=== PATIENT | male | born 1990 | race African-American/Black ===

== ENCOUNTER 2018-06-29 10:25 | Inpatient (IN) ==
[2018-06-29 11:18] LABS: Appearance Urine Cloudy (Clear); Bacteria Urine Automated Negative (Negative); Bilirubin Urine Negative (Negative); Color Urine Yellow; Glucose Urine UA Negative (Negative); Ketones Urine Negative (Negative); Leukocyte Esterase Urine Negative (Negative); Nitrite Urine Negative (Negative); Protein Urine Negative (Negative); Urobilinogen Urine Negative (Negative); pH Urine 7.5 (4.5-7.5)
[2018-06-29] MEDS ORDERED: SODIUM CHLORIDE 0.9% 250 ML IV PRN ×2 (11:28→14:35)
[2018-06-29 11:37] LABS: Alanine Aminotransferase 10 U/L (12-78); Albumin Level 3.8 gm/dl (3.4-5.0); Aspartate Aminotransferase 6 U/L (15-37); BUN Creatinine Ratio 14.5 (10-20); Blood Urea Nitrogen 11 mg/dl (7-18); Calcium 8.6 mg/dl (8.5-10.1); Carbon Dioxide 27 mmol/L (21-32); Chloride 110 mmol/L (98-107); Creatinine Clr Calc Pharmacy 164.3 ml/min; Est GFR (African American) 145.2; Est GFR (Non-African American) 125.2; Glucose 88 mg/dl (70-99); Potassium 3.7 mmol/L (3.5-5.1); Sodium 141 mmol/L (136-145)
[2018-06-29 11:40] LABS: Alkaline Phosphatase 66 U/L (45-117); Bilirubin,Total 0.4 mg/dl (0.2-1); Globulin 3.7 gm/dl (2.5-4.0); Total Protein 7.5 gm/dl (6.4-8.2)
[2018-06-29 11:41] LABS: Hematocrit (blood only) 16.5 % (42-52); Hemoglobin 5.5 g/dL (14.0-18.0); Lymphocytes # (auto) 1.31 K/uL (1.2-3.4); Lymphocytes % (auto) 73.2 %; Mean Corpuscular Hgb Conc 33.3 g/dL (32-36); Mean Corpuscular Volume 103.1 fL (80-100); Mean Platelet Volume 7.9 fL (7.4-10.4); Monocytes # (auto) 0.05 K/uL (0.11-0.59); Monocytes % (auto) 2.8 %; Neutrophils # (auto) 0.43 K/uL (1.4-6.5); Platelet Count 20 K/uL (130-400); RDW Coefficient of Variation 16.9 % (11.5-14.5); RDW Standard Deviation 62.5 fL (36.4-46.3); White Blood Count 1.79 K/uL (4.8-10.8)
[2018-06-29 11:42] LABS: Ovalocytes 2+; Tear Drop Cells 1+
[2018-06-29] MEDS ORDERED: IOVERSOL 100ml IV PRN (11:48)
[2018-06-29 11:58] LABS: Troponin I < 0.015 ng/ml (0-0.045)
--- NOTE | 2018-06-29 12:05 | XRay Report ---
XR chest 1V portable CLINICAL HISTORY: 28 years-old Male presenting with chest pain. TECHNIQUE: Portable upright AP view of the chest was obtained. COMPARISON: 10/27/2014. FINDINGS: Cardiomediastinal silhouette normal. No focal opacity. No large effusion or pneumothorax. Osseous str uctures normal. Upper abdomen normal. IMPRESSION: 1. No acute cardiopulmonary disease. Electronically signed by: Donal Coyle M.D. 06/29/2018 12:03 PM
--- NOTE | 2018-06-29 12:13 | CT Scan Report ---
CT SCAN OF THE ABDOMEN AND PELVIS WITH IV CONTRAST CLINICAL HISTORY: Pancytopenia. Constipation. COMPARISON STUDY: No priors. TECHNIQUE: Following the IV administration of 93 cc of Optiray 320, CT scan of the abdomen and pelvi s is performed from the lung bases to the proximal femora. Images are reviewed in the axial, sagittal , and coronal planes. IV contrast was administered without complication. A dose lowering technique wa s utilized adhering to the principles of ALARA. CT DOSE: 327.17 mGy.cm FINDINGS: Lung bases: The heart is normal in size and without pericardial effusion. The lung bases are clear. Liver: The contrast-enhanced liver is normal in size, contour, and attenuation. There is no intrahepa tic biliary ductal dilatation. The hepatic veins and portal veins are patent. There are scattered keshawn cified hepatic granulomas. Gallbladder: Unremarkable. Spleen: Normal in size and attenuation. There are calcified splenic granulomas. Pancreas: Unremarkable. Adrenal glands: Unremarkable. Kidneys: The contrast enhanced kidneys are normal in size and without hydronephrosis. The kidneys enh ance symmetrically. Abdominal vasculature: The abdominal aorta is normal in course and caliber. Bowel: There is moderate to severe constipation. No bowel obstruction is identified. The appendix is not identified and reported surgically absent. Peritoneum: There is no intraperitoneal free air or abdominal ascites. There is a small fat-containin g umbilical hernia. Lymphadenopathy: None. Pelvic viscera: The bladder, prostate, and seminal vesicles are normal as imaged. Skeletal structures: No lytic or blastic lesions are seen. There is a right-sided pars defect at L5. IMPRESSION: Constipation. Electronically signed by: Helder Rivera M.D. 06/29/2018 12:12 PM
[2018-06-29 12:40] LABS: Partial Thromboplastin Ratio 0.9; Partial Thromboplastin Time 25.5 Seconds (21.0-31.0); Prothrombin Time 10.7 Seconds (9.0-12.0)
[2018-06-29] MEDS ORDERED: ACETAMINOPHEN 325 MG TAB PO PRN (14:27)
[2018-06-29] MEDS ORDERED: POLYETHYLENE (MIRALAX) 17 GM PACK PO PRN (14:27)
[2018-06-29] MEDS ORDERED: ONDANSETRON INJ 2 MG/ML 2 ML VIAL IV PRN (14:27)
--- NOTE | 2018-06-29 15:26 | History & Physical Report ---
Date of Service June 29, 2018 Assessment & Plan (1) Pancytopenia: WBC 1.7, no blasts or other atypical WBC seen on smear Hb 5.5, feels fatigued and has KEY Platelets 20, no bruising or bleeding will transfuse 2 units of PRBC for the anemia no need for platelets at this time as he is not bleeding will need bone marrow biopsy tomorrow, Dr. Mejia consulted check CMV, EBV and HIV (has been tested for HIV in the past, negative) no toxic inhalations or ingestions per patient discussed with Dr. Mott over the phone today, he agrees to accept patient to [facility] once they have beds possible bed tomorrow afternoon but in reality it could be until Wednesday he recommends getting the biopsy tomorrow to get the work up started will check labs in the AM (2) Asthma: no wheezing on exam, breathing stable continue Advair, Singulair, Alvesco (3) Depression: mood stable, continue Duloxetine Please note that 80 minutes spent on this admission this included visiting with the patient twice, speaking with Dr. Cornelius on the phone twice and speaking with [facility] and Dr. Mott for 25 minutes History of Present Illness Chief Complaint: I feel tired Primary Care Provider: [facility] 28 yo male with history of asthma and depression, currently incarcerated at [facility], presents to the ED due to pancytopenia. Had blood work at [facility] that shows all three counts were low so he was sent to the ED for work up. The patient reports that he has been really fatigued and has been experiencing shortness of breath for one week. In hindsight, said that the fatigue has been for 2 weeks. He says he developed a mild sore throat three days ago. No fever or chills, no sweats, no weight loss. No bruising or bleeding. No cough, no dyspnea at rest. His appetite has been poor for the past two weeks, says he just doesn't feel like eating. Denies abdominal pain or nausea. His last BM was a week ago. This is atypical for him. He has no personal history of any type of blood dyscrasia. To his knowledge no one in his family has had leukemia. His mother has diabetes and some type of cancer that went to her bones, he does not know the primary cancer. No medical history for his father or siblings. CBC showed WBC 1.7, Hb 5.5, platelets 20. Cr stable. Peripheral smear showed normochromic RBC, no atypical WBC such as blasts, no platelet clumping so the number was legitimate. Discussed the case with Dr. Mejia over the phone. He recommended checking EBV, CMV, HIV. Ultimately he feels the patient will need bone marrow biopsy. Asked specifically about any toxic exposures, the patient denied anything in the past two weeks or ever. Discussed with Dr. Mott at [facility], he agrees that the patient should come to [facility] but they do not have beds, recommends getting BM biopsy here to start the work up. Allergies Allergy/AdvReac Type Severity Reaction Status Date / Time tomato Allergy Unknown Unverified 06/29/18 12:31 Home Medications Home Medications Medication Instructions Recorded Confirmed Type ciclesonide [Alvesco] 1 puff INHALATION BID 06/29/18 06/29/18 History diphenhydramine HCl 50 mg PO HS 06/29/18 06/29/18 History duloxetine 30 mg PO HS 06/29/18 06/29/18 History levalbuterol tartrate [Xopenex HFA] 1 puff INHALATION Q6H 06/29/18 06/29/18 History montelukast 10 mg PO DAILY 06/29/18 06/29/18 History prazosin 2 mg PO HS 06/29/18 06/29/18 History salmeterol [Serevent Diskus] 1 inh INHALATION Q12H 06/29/18 06/29/18 History Past Med/Surg History Medical History Asthma Depression No significant past surgical history Social History Current Living Situation: Other Current Living Situation Comment: inmate Feels Safe at Home: Yes Smoking Status: Current every day smoker Review of Systems All systems reviewed & are unremarkable except as noted in HPI & below Constitutional: + fatigue and + weakness; no fever, no chills, no sweats and no weight loss Ear, Nose, Mouth, Throat: no bleeding gums Cardiovascular: + dyspnea on exertion; no chest pain, no dyspnea and no edema Gastrointestinal: + constipation; no abdominal pain, no nausea, no vomiting and no diarrhea/loose stools Integumentary: no new lesions and no unusual bruising Physical Exam 2 Vital Signs (Past 24 Hours): Last Vital Signs Temp 36.9 C 06/29/18 14:37 Pulse 67 06/29/18 14:37 Resp 20 06/29/18 13:52 BP 103/66 06/29/18 14:37 Pulse Ox 100 06/29/18 14:37 Constitutional: WD/WN, vitals as above Eyes: PERRL, conjunctivae normal, anicteric sclerae ENMT: external ear and nose normal, oropharynx normal Neck: trachea midline, no thyromegaly Respiratory: normal respiratory effort, lungs clear to auscultation Cardiovascular: RRR, no murmur, no edema Gastrointestinal (Abdomen): normal bowel sounds, soft, nontender, no hepatosplenomegaly Musculoskeletal: no cyanosis or clubbing, extremities motor strength 5/5 Skin: no rashes, warm and dry Neurologic: patellar DTR's 2+ bilat, sensation intact and PERRL, EOMI, accommodation nl, no face palsy, no dysarthria Psychiatric: A+Ox3, euthymic affect Lymphatic: no cervical or axillary lymphadenopathy Results & Data Laboratory Results Laboratory Results - last 24 hr 06/29/18 06/29/18 06/29/18 11:00 11:00 11:00 WBC 1.79 L RBC 1.60 L Hgb 5.5 L* Hct 16.5 L* MCV 103.1 H MCH 34.4 H MCHC 33.3 RDW Std Deviation 62.5 H RDW Coeff of Mendez 16.9 H Plt Count 20 L* MPV 7.9 Immature Gran % (Auto) 0.0 Neut % (Auto) 24.0 Lymph % (Auto) 73.2 [place] % (Auto) 2.8 Eos % (Auto) 0.0 Baso % (Auto) 0.0 Immature Gran # (Auto) 0.00 Neut # (Auto) 0.43 L* Lymph # (Auto) 1.31 [facility] # (Auto) 0.05 L Eos # (Auto) 0.00 Baso # (Auto) 0.00 Platelet Estimate SIGNIFIC DECREASED Tear Drop Cells 1+ Ovalocytes 2+ Peripher Smr Path Cons PT 10.7 INR 1.0 APTT 25.5 PTT Ratio 0.9 Sodium 141 Potassium 3.7 Chloride 110 H Carbon Dioxide 27 Anion Gap 4.0 BUN 11 Creatinine 0.77 Est Cr Clr Drug Dosing 164.3 Est GFR ( Amer) 145.2 Est GFR (Non-Af Amer) 125.2 BUN/Creatinine Ratio 14.5 Glucose 88 Calcium 8.6 Total Bilirubin 0.4 AST 6 L ALT 10 L Alkaline Phosphatase 66 Troponin I < 0.015 Total Protein 7.5 Albumin 3.8 Globulin 3.7 Albumin/Globulin Ratio 1.0 Lipase 87 Urine Color Urine Appearance Urine pH Ur Specific Lillian Urine Protein Urine Glucose (UA) Urine Ketones Urine Blood Urine Nitrite Urine Bilirubin Urine Urobilinogen Ur Leukocyte Esterase Urine WBC (Auto) Urine RBC (Auto) U Hyaline Cast (Auto) U Epithel Cells (Auto) Urine Bacteria (Auto) Blood Type Blood Type Recheck Antibody Screen Crossmatch 06/29/18 06/29/18 06/29/18 11:05 11:57 11:58 WBC RBC Hgb Hct MCV MCH MCHC RDW Std Deviation RDW Coeff of Mendez Plt Count MPV Immature Gran % (Auto) Neut % (Auto) Lymph % (Auto) [facility] % (Auto) Eos % (Auto) Baso % (Auto) Immature Gran # (Auto) Neut # (Auto) Lymph # (Auto) [facility] # (Auto) Eos # (Auto) Baso # (Auto) Platelet Estimate Tear Drop Cells Ovalocytes Peripher Smr Path Cons PT INR APTT PTT Ratio Sodium Potassium Chloride Carbon Dioxide Anion Gap BUN Creatinine Est Cr Clr Drug Dosing Est GFR ( Amer) Est GFR (Non-Af Amer) BUN/Creatinine Ratio Glucose Calcium Total Bilirubin AST ALT Alkaline Phosphatase Troponin I Total Protein Albumin Globulin Albumin/Globulin Ratio Lipase Urine Color Yellow Urine Appearance Cloudy H Urine pH 7.5 Ur Specific Lillian 1.020 Urine Protein Negative Urine Glucose (UA) Negative Urine Ketones Negative Urine Blood Negative Urine Nitrite Negative Urine Bilirubin Negative Urine Urobilinogen Negative Ur Leukocyte Esterase Negative Urine WBC (Auto) 1-5 Urine RBC (Auto) 0-4 U Hyaline Cast (Auto) 1-5 U Epithel Cells (Auto) 10-20 H Urine Bacteria (Auto) Negative Blood Type O Positive Blood Type Recheck O Positive Antibody Screen NEGATIVE Crossmatch See Detail Diagnostic Findings CT SCAN OF THE ABDOMEN AND PELVIS WITH IV CONTRAST CLINICAL HISTORY: Pancytopenia. Constipation. COMPARISON STUDY: No priors. TECHNIQUE: Following the IV administration of 93 cc of Optiray 320, CT scan of the abdomen and pelvis is performed from the lung bases to the proximal femora. Images are reviewed in the axial, sagittal, and coronal planes. IV contrast was administered without complication. A dose lowering technique was utilized adhering to the principles of ALARA. CT DOSE: 327.17 mGy.cm FINDINGS: Lung bases: The heart is normal in size and without pericardial effusion. The lung bases are clear. Liver: The contrast-enhanced liver is normal in size, contour, and attenuation. There is no intrahepatic biliary ductal dilatation. The hepatic veins and portal veins are patent. There are scattered calcified hepatic granulomas. Gallbladder: Unremarkable. Spleen: Normal in size and attenuation. There are calcified splenic granulomas. Pancreas: Unremarkable. Adrenal glands: Unremarkable. Kidneys: The contrast enhanced kidneys are normal in size and without hydronephrosis. The kidneys enhance symmetrically. Abdominal vasculature: The abdominal aorta is normal in course and caliber. Bowel: There is moderate to severe constipation. No bowel obstruction is identified. The appendix is not identified and reported surgically absent. Peritoneum: There is no intraperitoneal free air or abdominal ascites. There is a small fat-containing umbilical hernia. Lymphadenopathy: None. Pelvic viscera: The bladder, prostate, and seminal vesicles are normal as imaged. Skeletal structures: No lytic or blastic lesions are seen. There is a right- sided pars defect at L5. IMPRESSION: Constipation. Code Status & VTE Plan Code Status full code VTE Prophylaxis Plan VTE Prophylaxis will be ordered: No Reason for no VTE drug order: Contraindicated (thrombocytopenia) Reason for no VTE mechanical prophylaxis: Treatment not indicated ( thrombocytopenia)
[2018-06-29] MEDS: DULOXETINE HCL 30 MG CAP PO SCH ×2 (20:34→20:42)
[2018-06-29] MEDS: PRAZOSIN HCL 1 MG CAP PO SCH ×2 (20:34→20:42)
[2018-06-29] MEDS: SALMETEROL XINAFOATE 50MCG 28 BLISTER INH INH SCH (20:35)
[2018-06-29] MEDS: BUDESONIDE 90 MCG INH INH SCH (20:35)
[2018-06-29] MEDS ORDERED: SERTRALINE HCL 100 MG TABLET PO SCH (21:00)
[2018-06-29] MEDS ORDERED: risperiDONE 3 MG TABLET PO SCH (21:00)
[2018-06-29] MEDS ORDERED: PRAZOSIN HCL 1 MG CAP PO SCH (21:00)
[2018-06-30 06:27] LABS: Platelet Count 20 K/uL (130-400)
[2018-06-30 06:34] LABS: BUN Creatinine Ratio 15.3 (10-20); Calcium 8.5 mg/dl (8.5-10.1); Creatinine Clr Calc Pharmacy 175.7 ml/min; Est GFR (African American) 149.2; Est GFR (Non-African American) 128.7; Potassium 4.2 mmol/L (3.5-5.1)
[2018-06-30 06:41] LABS: Hematocrit (blood only) 20.3 % (42-52); Hemoglobin 6.9 g/dL (14.0-18.0); Mean Corpuscular Volume 96.2 fL (80-100); Mean Platelet Volume 8.9 fL (7.4-10.4); RDW Standard Deviation 69.3 fL (36.4-46.3); Red Blood Count 2.11 M/uL (4.7-6.1); White Blood Count 2.18 K/uL (4.8-10.8)
[2018-06-30 06:42] LABS: Anisocytosis Present; Eosinophils # (auto) 0.01 K/uL (0-0.5); Eosinophils % (auto) 0.5 %; Lymphocytes # (auto) 1.78 K/uL (1.2-3.4); Lymphocytes % (auto) 81.7 %; Monocytes # (auto) 0.05 K/uL (0.11-0.59); Monocytes % (auto) 2.3 %; Neutrophils # (auto) 0.34 K/uL (1.4-6.5); Neutrophils % (auto) 15.5 %; Ovalocytes 1+; Tear Drop Cells 1+
[2018-06-30] MEDS: BUDESONIDE 90 MCG INH INH SCH ×2 (07:16→20:20)
[2018-06-30] MEDS: SALMETEROL XINAFOATE 50MCG 28 BLISTER INH INH SCH ×2 (07:16→20:19)
[2018-06-30] MEDS ORDERED: MONTELUKAST SODIUM 10 MG TABLET PO SCH (09:00)
[2018-06-30] MEDS ORDERED: LIDOCAINE HCL 1% 20 ML VIAL ONE (11:42)
--- NOTE | 2018-06-30 16:47 | Discharge Summary ---
Date of Service June 30, 2018 Admission HPI Per Admitting Provider 28 yo male with history of asthma and depression, currently incarcerated at [facility], presents to the ED due to pancytopenia. Had blood work at [facility] that shows all three counts were low so he was sent to the ED for work up. The patient reports that he has been really fatigued and has been experiencing shortness of breath for one week. In hindsight, said that the fatigue has been for 2 weeks. He says he developed a mild sore throat three days ago. No fever or chills, no sweats, no weight loss. No bruising or bleeding. No cough, no dyspnea at rest. His appetite has been poor for the past two weeks, says he just doesn't feel like eating. Denies abdominal pain or nausea. His last BM was a week ago. This is atypical for him. He has no personal history of any type of blood dyscrasia. To his knowledge no one in his family has had leukemia. His mother has diabetes and some type of cancer that went to her bones, he does not know the primary cancer. No medical history for his father or siblings. CBC showed WBC 1.7, Hb 5.5, platelets 20. Cr stable. Peripheral smear showed normochromic RBC, no atypical WBC such as blasts, no platelet clumping so the number was legitimate. Discussed the case with Dr. Mejia over the phone. He recommended checking EBV, CMV, HIV. Ultimately he feels the patient will need bone marrow biopsy. Asked specifically about any toxic exposures, the patient denied anything in the past two weeks or ever. Discussed with Dr. Mott at [facility], he agrees that the patient should come to [facility] but they do not have beds, recommends getting BM biopsy here to start the work up. Principal Diagnosis pancytopenia Discharge Exam Constitutional WD/WN, vitals as above Eyes PERRL, conjunctivae normal, anicteric sclerae ENMT external ear and nose normal, oropharynx normal Respiratory normal respiratory effort, lungs clear to auscultation Cardiovascular RRR, no murmur, no edema Gastrointestinal (Abdomen) normal bowel sounds, soft, nontender, no hepatosplenomegaly Skin no rashes, warm and dry no bruising/bleeding Psychiatric A+Ox3, euthymic affect Discharge Data Allergies Allergy/AdvReac Type Severity Reaction Status Date / Time tomato Allergy Unknown Unverified 06/29/18 12:31 Consultations 06/29/18 12:23 ED Decision to Admit Stat 06/29/18 14:27 Consult Hematology Routine Ordered Studies 06/29/18 11:28 CT abd pelvis IV con only Stat Hospital Course (1) Pancytopenia: 28 y/o M with PMH asthma and depression presented to [facility] 06/19 from [facility] where he is incarcerated for concerns over pancytopenia. Pt had blood work at [facility] that showed all three counts were low: WBC 1.7, Hb 5.5, platelets 20. Pt reported that he had been very fatigued with KEY and has been experiencing SOB for one week. Additional complaints of sore throat three days ago and poor for the past two weeks. Last BM was a week ago, which is abnormal. Pt denied fever, chills, sweats, weight loss, abd pain, N/V, bruising or bleeding, or any sort of toxic exposures/inhalations/ingestions. Pt notes no personal or family history of any type of blood dyscrasia or leukemia. Pt was admitted and the following was the medical management during his stay here. 1) Pancytopenia -Pt's peripheral smear showed normochromic RBC, no atypical WBC such as blasts, no platelet clumping. Most recent blood work showed WBC 2.18, Hgb 6.9 (s/p transfusion 2 units pRBCs), Plt 20. Bone marrow biopsy was performed 06/30 and while final full report is pending, heme/onc noted wet read showed hypocellular marrow indicative of aplastic anemia. CMV and EBV were still pending, HIV negative. [facility] [place] and agreed for transfer. On d/c, pt notes ongoing fatigue. 2) Asthma -Pt had no wheezing on exam and breathing was stable. Pt continued on Advair, Singulair, Alvesco 3) Depression -Pt's mood was stable, and was continued on Duloxetine DVT prophylaxis not given considering low risk. At time of d/c, pt had no other acute concerns or complaints. Total Time Total Time Spent Total Time Spent (In Minutes): <30 min Discharge Plan Discharge Items Patient Disposition: Transfer Acute Care Hospital Reason For Visit: PANCYTOPENIA Discharge Diagnosis: pancytopenia Discharge Goals: Diagnostic testing and Improve disease control Activity: Per 'Additional Instructions' section Non-emergency contact: Primary Care Provider Call non-emergency contact if: you have any medication questions and your symptoms worsen Diet: Heart Healthy Addtl Provider Instructions: 28 y/o M with PMH asthma and depression presented to [facility] 06/19 from [facility] where he is incarcerated for concerns over pancytopenia. Pt had blood work at [facility] that showed all three counts were low: WBC 1.7, Hb 5.5, platelets 20. Pt reported that he had been very fatigued with KEY and has been experiencing SOB for one week. Additional complaints of sore throat three days ago and poor for the past two weeks. Last BM was a week ago, which is abnormal. Pt denied fever, chills, sweats, weight loss, abd pain, N/V, bruising or bleeding, or any sort of toxic exposures/inhalations/ingestions. Pt notes no personal or family history of any type of blood dyscrasia or leukemia. Pt was admitted and the following was the medical management during his stay here. Pt's peripheral smear showed normochromic RBC, no atypical WBC such as blasts, no platelet clumping. Most recent blood work showed WBC 2.18, Hgb 6.9 (s/p transfusion 2 units pRBCs), Plt 20. Bone marrow biopsy was performed 06/30 and while final full report is pending, heme/onc noted wet read showed hypocellular marrow indicative of aplastic anemia. CMV and EBV were still pending, HIV negative. [facility] and agreed for transfer. On d/c, pt notes ongoing fatigue. Prescriptions: Continue diphenhydramine HCl 50 mg Capsule 50 mg PO HS RF: 0 salmeterol [Serevent Diskus] 50 mcg/dose Blister With Device 1 inh INHALATION Q12H RF: 0 montelukast 10 mg Tablet 10 mg PO DAILY RF: 0 prazosin 2 mg Capsule 2 mg PO HS RF: 0 duloxetine 30 mg Capsule,Delayed Release(Dr/Ec) 30 mg PO HS RF: 0 levalbuterol tartrate [Xopenex HFA] 45 mcg/actuation Hfa Aerosol Inhaler 1 puff INHALATION Q6H RF: 0 ciclesonide [Alvesco] 80 mcg/actuation Hfa Aerosol Inhaler 1 puff INHALATION BID RF: 0 Stand-Alone Forms: My [facility] Discharge Orders: Discharge Order (Routine); Ordered 06/30/18 Ordered By: Tanner Knox Admission Data Admit Date/Time: 06/29/18 12:26 Attending Provider: Nnamdi Carrera Admit Provider: Nehemias Ellis Primary Care Provider: [facility] GALLE[facility] Other Providers: Nehemias Ellis ; Conrad Mejia Service: Medical Supervising Physician Co-Signing Physician Notes I personally examined the patient and verified all paulino points of history and exam, discussed case, and agree with decision making with Dr Knox. Feeling okay post bone marrow biopsy. Case discussed with hematology�oncology throughout the day. Input greatly appreciated. Bed available at [facility], and patient transferred. Vitals noted, in general he is laying in bed no distress. HEENT normocephalic atraumatic mucous membranes are moist. Breathing is unlabored no accessory muscle use good effort. Skin shows no rashes no pallor or icterus. Pancytopenia�biopsy pending, transfer to [facility] for ongoing evaluation and treatment. Stable via ground Resident Activity Tracking Resident Involvement: Resident Care Provided Care Provided: Adult Hospital Medicine
[2018-06-30] MEDS: DULOXETINE HCL 30 MG CAP PO SCH (20:20)
[2018-06-30] MEDS: PRAZOSIN HCL 1 MG CAP PO SCH (20:20)
--- NOTE | 2018-06-30 20:48 | Emergency Department Note ---
Entered by Wei Potter acting as a scribe for Tammy Duggan DO History of Present Illness General Chief complaint: Constipation Stated complaint: LOW BLOOD COUNT,NOT HAVING BOWEL MOVEMENT 1WEEK Time Seen by Provider: 06/29/18 10:59 Source: patient History of Present Illness Onset (ago): day(s) (bloodwork obtained yesterday) Location: head (global), upper extremity (global) and lower extremity (global) Pain Consistency: + other (shortness of breath and chest pain with exertion) Quality: + other (pancytopenia) Exacerbated By: + other (exertion) Associated symptoms: + other (fatigue, bleeding of gums when brushing teeth) The patient is a 41 year old male who presents to the Emergency Room after bloodwork obtained yesterday showing pancytopenia. The patient reports that he does not have a history of this. He reports that recently he has been weak and fatigued. He notes that he develops shortness of breath, �choking� chest pain, and lightheadedness with exertion. He reports a history of asthma but states that his inhalers are not improving his symptoms. He states that there is bleeding of the gums when he brushes his teeth. He denies hematuria. He states that he has not had a bowel movement for one week now, noting that he normally has one every four days. He states that his last bowel movement one week ago was �harris� without blood. No recent dark or black stools. He denies a history of blood transfusion or liver problems. He states that he regularly takes several medications. He notes that his mother was diagnosed with bone cancer in her 30s. Home Medications Home Medications Medication Instructions Recorded Confirmed Type ciclesonide [Alvesco] 1 puff INHALATION BID 06/29/18 06/29/18 History diphenhydramine HCl 50 mg PO HS 06/29/18 06/29/18 History duloxetine 30 mg PO HS 06/29/18 06/29/18 History levalbuterol tartrate [Xopenex HFA] 1 puff INHALATION Q6H 06/29/18 06/29/18 History montelukast 10 mg PO DAILY 06/29/18 06/29/18 History prazosin 2 mg PO HS 06/29/18 06/29/18 History salmeterol [Serevent Diskus] 1 inh INHALATION Q12H 06/29/18 06/29/18 History Allergies Allergy/AdvReac Type Severity Reaction Status Date / Time tomato Allergy Unknown Unverified 06/29/18 12:31 Past Med/Surg History Medical History Asthma Depression No significant past surgical history Social History Current Living Situation: Other Current Living Situation Comment: inmate Feels Safe at Home: Yes Smoking Status: Current every day smoker Preferred Language: Cuban Review of Systems See HPI for pertinent positives & negatives. and A total of 10 systems reviewed and were otherwise negative Physical Exam Vital Signs Vital Signs - 24 hr 06/29/18 21:00 06/29/18 22:00 06/29/18 22:56 Temperature 36.9 C 37.2 C 36.8 C Temperature Source Oral Oral Oral Pulse Rate 78 78 Pulse Rate [Right Finger] 67 Pulse Rhythm Regular Regular Pulse Rhythm [Right Finger] Regular Pulse Strength Normal Normal Pulse Strength [Right Finger] Normal Respiratory Rate 18 18 18 Respiratory Effort / Characteristics Non-Labored Respiratory Depth Normal Respiratory Pattern Regular Blood Pressure 113/72 119/71 Blood Pressure [Right Arm] 114/62 Blood Pressure Mean 85 87 Blood Pressure Mean [Right Arm] 79 Blood Pressure Position Sitting Sitting Blood Pressure Position [Right Arm] Lying Pulse Oximetry 100 100 94 Oxygen Delivery Method Room Air 06/30/18 06:32 06/30/18 16:17 06/30/18 19:51 Temperature 36.8 C 36.5 C 36.5 C Temperature Source Oral Oral Pulse Rate Pulse Rate [Right Finger] 59 L 68 68 Pulse Rhythm Pulse Rhythm [Right Finger] Regular Pulse Strength Pulse Strength [Right Finger] Normal Respiratory Rate 18 18 18 Respiratory Effort / Characteristics Non-Labored Respiratory Depth Normal Respiratory Pattern Regular Blood Pressure Blood Pressure [Right Arm] 104/63 113/57 L 113/57 L Blood Pressure Mean Blood Pressure Mean [Right Arm] 76 75 Blood Pressure Position Blood Pressure Position [Right Arm] Lying Lying Pulse Oximetry 96 100 100 Oxygen Delivery Method Room Air Room Air GENERAL: alert, pale appearing, well nourished, no distress, non-toxic EYE EXAM: normal conjunctiva, PERRL and EOM's grossly intact OROPHARYNX: no exudate, no erythema, lips, buccal mucosa, and tongue normal and mucous membranes are moist NECK: supple, no nuchal rigidity, no adenopathy, non-tender LUNGS: Clear to auscultation. Normal chest wall mechanics, no w/r/r HEART: no murmurs, S1 normal and S2 normal ABDOMEN: abdomen soft, non-tender, normo-active bowel sounds, no masses, no rebound or guarding. BACK: Back is symmetrical on inspection and there is no deformity, no midline tenderness, no CVA tenderness. SKIN: pale, no rashes and no bruising UPPER EXTREMITIES: upper extremities are grossly normal. FROM, nml pulses b/l. LOWER EXTREMITIES: No pitting edema. FROM, nml pulses b/l. NEURO EXAM: Normal sensorium, cranial nerves II-XII grossly intact, normal speech, no gross weakness of arms, no gross weakness of legs. Gross sensation intact. Course 1106: Past medical records reviewed. The patient was evaluated in room C7, and a complete history and physical examination were performed. 1127: Review of records shows that outpatient bloodwork on June 28 showed hemoglobin of 5.5, hematocrit of 16.5, WBC of 2.1, and inability to report platelet count. 1135: I discussed blood transfusion with the patient at bedside. A consent form was signed. 1220: I consulted Dr. Ellis � [facility] Hospitalist. He will reevaluate the patient for hospitalization. Consultations Consultation #1: I consulted Dr. Ellis � [facility] Hospitalist. He will reevaluate the patient for hospitalization. Time: 12:20 Administered Medications Budesonide (Pulmicort Flexhaler) 1 puffs INH BID KATRIN Stop: 07/29/18 20:59 Last Admin: 06/30/18 20:20 Dose: 1 puffs Admin: 06/30/18 07:16 Dose: 1 puffs Admin: 06/29/18 20:35 Dose: 1 puffs Diphenhydramine HCl (Benadryl Capsule) 50 mg PO HS KATRIN Stop: 07/29/18 20:59 Last Admin: 06/30/18 20:19 Dose: 50 mg Admin: 06/29/18 20:34 Dose: 50 mg Duloxetine HCl (Cymbalta) 30 mg PO HS KATRIN Stop: 07/29/18 20:59 Last Admin: 06/30/18 20:20 Dose: Not Given Admin: 06/29/18 20:42 Dose: Not Given Ioversol (Optiray 320 100ml) 93 ml IV ONCE PRN PRN Reason: Interaction Checking Stop: 07/03/18 11:47 Last Admin: 06/29/18 11:49 Dose: 93 ml Montelukast Sodium (Singulair) 10 mg PO DAILY KATRIN Stop: 07/30/18 08:59 Last Admin: 06/30/18 07:16 Dose: 10 mg Polyethylene Glycol (Miralax Powder Packet) 17 gm PO DAILY PRN PRN Reason: Constipation Stop: 07/29/18 14:26 Last Admin: 06/29/18 23:36 Dose: 17 gm Prazosin HCl (Prazosin Hcl) 2 mg PO HS KATRIN Stop: 07/29/18 20:59 Last Admin: 06/30/18 20:20 Dose: Not Given Admin: 06/29/18 20:42 Dose: Not Given Salmeterol Xinafoate (Serevent Diskus) 1 puffs INH Q12 KATRIN Stop: 07/29/18 20:59 Last Admin: 06/30/18 20:19 Dose: 1 puffs Admin: 06/30/18 07:16 Dose: 1 puffs Admin: 06/29/18 20:35 Dose: 1 puffs Discontinued Medications Lidocaine HCl (Xylocaine 1% (Local)) Confirm Administered Dose 20 ml .ROUTE .STK -MED ONE Stop: 06/30/18 11:43 Last Admin: 06/30/18 12:40 Dose: Not Given Medical Decision Making Differential Diagnosis Differential diagnosis: Etiologies such as metabolic, infection, hypo/hyperglycemia, electrolyte abnormalities, cardiac sources, intracerebral event, toxicologic, neurologic, as well as others were entertained. Medical Records Attestation: I reviewed the patient's medical records. Home Medications Current Medication List: was personally reviewed by me Laboratory Data Attestation: I reviewed the patient's lab results. Result diagrams: 06/30/18 05:37 06/30/18 05:37 Lab Results 06/29/18 06/29/18 06/29/18 Range/Units 11:00 11:00 11:00 WBC 1.79 L (4.8-10.8) K/uL RBC 1.60 L (4.7-6.1) M/uL Hgb 5.5 L* (14.0-18.0) g/dL Hct 16.5 L* (42-52) % MCV 103.1 H (80-100) fL MCH 34.4 H (25-34) pg MCHC 33.3 (32-36) g/dL RDW Std Deviation 62.5 H (36.4-46.3) fL RDW Coeff of Mendez 16.9 H (11.5-14.5) % Plt Count 20 L* (130-400) K/uL MPV 7.9 (7.4-10.4) fL Immature Gran % (Auto) 0.0 % Neut % (Auto) 24.0 % Lymph % (Auto) 73.2 % Menard % (Auto) 2.8 % Eos % (Auto) 0.0 % Baso % (Auto) 0.0 % Immature Gran # (Auto) 0.00 (0.00-0.02) K/uL Neut # (Auto) 0.43 L* (1.4-6.5) K/uL Lymph # (Auto) 1.31 (1.2-3.4) K/uL Menard # (Auto) 0.05 L (0.11-0.59) K/uL Eos # (Auto) 0.00 (0-0.5) K/uL Baso # (Auto) 0.00 (0-0.2) K/uL Platelet Estimate SIGNIFIC DECREASED (Normal) Anisocytosis Tear Drop Cells 1+ Ovalocytes 2+ Peripher Smr Path Cons PT 10.7 (9.0-12.0) Seconds INR 1.0 (0.9-1.1) APTT 25.5 (21.0-31.0) Seconds PTT Ratio 0.9 Sodium 141 (136-145) mmol/L Potassium 3.7 (3.5-5.1) mmol/L Chloride 110 H (98-107) mmol/L Carbon Dioxide 27 (21-32) mmol/L Anion Gap 4.0 (3-11) BUN 11 (7-18) mg/dl Creatinine 0.77 (0.6-1.4) mg/dl Est Cr Clr Drug Dosing 164.3 ml/min Est GFR ( Amer) 145.2 Est GFR (Non-Af Amer) 125.2 BUN/Creatinine Ratio 14.5 (10-20) Glucose 88 (70-99) mg/dl Calcium 8.6 (8.5-10.1) mg/dl Total Bilirubin 0.4 (0.2-1) mg/dl AST 6 L (15-37) U/L ALT 10 L (12-78) U/L Alkaline Phosphatase 66 (45-117) U/L Troponin I < 0.015 (0-0.045) ng/ml Total Protein 7.5 (6.4-8.2) gm/dl Albumin 3.8 (3.4-5.0) gm/dl Globulin 3.7 (2.5-4.0) gm/dl Albumin/Globulin Ratio 1.0 (0.9-2) Lipase 87 (73-393) U/L Urine Color Urine Appearance (Clear) Urine pH (4.5-7.5) Ur Specific [place] (1.000-1.030) Urine Protein (Negative) Urine Glucose (UA) (Negative) Urine Ketones (Negative) Urine Blood (Negative) Urine Nitrite (Negative) Urine Bilirubin (Negative) Urine Urobilinogen (Negative) Ur Leukocyte Esterase (Negative) Urine WBC (Auto) (0-5) /hpf Urine RBC (Auto) (0-4) /hpf U Hyaline Cast (Auto) (0-5) /lpf U Epithel Cells (Auto) (0-5) /lpf Urine Bacteria (Auto) (Negative) Nasal Screen MRSA (PCR) (Negative) HIV 1&2 Ab/P24 Ag 4thGn (Neg) Blood Type Blood Type Recheck Antibody Screen Crossmatch 06/29/18 06/29/18 06/29/18 Range/Units 11:00 11:05 11:57 WBC (4.8-10.8) K/uL RBC (4.7-6.1) M/uL Hgb (14.0-18.0) g/dL Hct (42-52) % MCV (80-100) fL MCH (25-34) pg MCHC (32-36) g/dL RDW Std Deviation (36.4-46.3) fL RDW Coeff of Mendez (11.5-14.5) % Plt Count (130-400) K/uL MPV (7.4-10.4) fL Immature Gran % (Auto) % Neut % (Auto) % Lymph % (Auto) % Menard % (Auto) % Eos % (Auto) % Baso % (Auto) % Immature Gran # (Auto) (0.00-0.02) K/uL Neut # (Auto) (1.4-6.5) K/uL Lymph # (Auto) (1.2-3.4) K/uL Menard # (Auto) (0.11-0.59) K/uL Eos # (Auto) (0-0.5) K/uL Baso # (Auto) (0-0.2) K/uL Platelet Estimate (Normal) Anisocytosis Tear Drop Cells Ovalocytes Peripher Smr Path Cons PT (9.0-12.0) Seconds INR (0.9-1.1) APTT (21.0-31.0) Seconds PTT Ratio Sodium (136-145) mmol/L Potassium (3.5-5.1) mmol/L Chloride (98-107) mmol/L Carbon Dioxide (21-32) mmol/L Anion Gap (3-11) BUN (7-18) mg/dl Creatinine (0.6-1.4) mg/dl Est Cr Clr Drug Dosing ml/min Est GFR ( Amer) Est GFR (Non-Af Amer) BUN/Creatinine Ratio (10-20) Glucose (70-99) mg/dl Calcium (8.5-10.1) mg/dl Total Bilirubin (0.2-1) mg/dl AST (15-37) U/L ALT (12-78) U/L Alkaline Phosphatase (45-117) U/L Troponin I (0-0.045) ng/ml Total Protein (6.4-8.2) gm/dl Albumin (3.4-5.0) gm/dl Globulin (2.5-4.0) gm/dl Albumin/Globulin Ratio (0.9-2) Lipase (73-393) U/L Urine Color Yellow Urine Appearance Cloudy H (Clear) Urine pH 7.5 (4.5-7.5) Ur Specific [place] 1.020 (1.000-1.030) Urine Protein Negative (Negative) Urine Glucose (UA) Negative (Negative) Urine Ketones Negative (Negative) Urine Blood Negative (Negative) Urine Nitrite Negative (Negative) Urine Bilirubin Negative (Negative) Urine Urobilinogen Negative (Negative) Ur Leukocyte Esterase Negative (Negative) Urine WBC (Auto) 1-5 (0-5) /hpf Urine RBC (Auto) 0-4 (0-4) /hpf U Hyaline Cast (Auto) 1-5 (0-5) /lpf U Epithel Cells (Auto) 10-20 H (0-5) /lpf Urine Bacteria (Auto) Negative (Negative) Nasal Screen MRSA (PCR) (Negative) HIV 1&2 Ab/P24 Ag 4thGn Neg (Neg) Blood Type O Positive Blood Type Recheck Antibody Screen NEGATIVE Crossmatch See Detail 06/29/18 06/29/18 06/30/18 Range/Units 11:58 16:00 05:37 WBC 2.18 L (4.8-10.8) K/uL RBC 2.11 L (4.7-6.1) M/uL Hgb 6.9 L* (14.0-18.0) g/dL Hct 20.3 L* (42-52) % MCV 96.2 D (80-100) fL MCH 32.7 (25-34) pg MCHC 34.0 (32-36) g/dL RDW Std Deviation 69.3 H (36.4-46.3) fL RDW Coeff of Mendez 20.0 H (11.5-14.5) % Plt Count 20 L* (130-400) K/uL MPV 8.9 (7.4-10.4) fL Immature Gran % (Auto) 0.0 % Neut % (Auto) 15.5 % Lymph % (Auto) 81.7 % [place]ard % (Auto) 2.3 % Eos % (Auto) 0.5 % Baso % (Auto) 0.0 % Immature Gran # (Auto) 0.00 (0.00-0.02) K/uL Neut # (Auto) 0.34 L* (1.4-6.5) K/uL Lymph # (Auto) 1.78 (1.2-3.4) K/uL [place]ard # (Auto) 0.05 L (0.11-0.59) K/uL Eos # (Auto) 0.01 (0-0.5) K/uL Baso # (Auto) 0.00 (0-0.2) K/uL Platelet Estimate (Normal) Anisocytosis Present Tear Drop Cells 1+ Ovalocytes 1+ Peripher Smr Path Cons PT (9.0-12.0) Seconds INR (0.9-1.1) APTT (21.0-31.0) Seconds PTT Ratio Sodium (136-145) mmol/L Potassium (3.5-5.1) mmol/L Chloride (98-107) mmol/L Carbon Dioxide (21-32) mmol/L Anion Gap (3-11) BUN (7-18) mg/dl Creatinine (0.6-1.4) mg/dl Est Cr Clr Drug Dosing ml/min Est GFR ( Amer) Est GFR (Non-Af Amer) BUN/Creatinine Ratio (10-20) Glucose (70-99) mg/dl Calcium (8.5-10.1) mg/dl Total Bilirubin (0.2-1) mg/dl AST (15-37) U/L ALT (12-78) U/L Alkaline Phosphatase (45-117) U/L Troponin I (0-0.045) ng/ml Total Protein (6.4-8.2) gm/dl Albumin (3.4-5.0) gm/dl Globulin (2.5-4.0) gm/dl Albumin/Globulin Ratio (0.9-2) Lipase (73-393) U/L Urine Color Urine Appearance (Clear) Urine pH (4.5-7.5) Ur Specific [place] (1.000-1.030) Urine Protein (Negative) Urine Glucose (UA) (Negative) Urine Ketones (Negative) Urine Blood (Negative) Urine Nitrite (Negative) Urine Bilirubin (Negative) Urine Urobilinogen (Negative) Ur Leukocyte Esterase (Negative) Urine WBC (Auto) (0-5) /hpf Urine RBC (Auto) (0-4) /hpf U Hyaline Cast (Auto) (0-5) /lpf U Epithel Cells (Auto) (0-5) /lpf Urine Bacteria (Auto) (Negative) Nasal Screen MRSA (PCR) Negative (Negative) HIV 1&2 Ab/P24 Ag 4thGn (Neg) Blood Type Blood Type Recheck O Positive Antibody Screen Crossmatch 06/30/18 Range/Units 05:37 WBC (4.8-10.8) K/uL RBC (4.7-6.1) M/uL Hgb (14.0-18.0) g/dL Hct (42-52) % MCV (80-100) fL MCH (25-34) pg MCHC (32-36) g/dL RDW Std Deviation (36.4-46.3) fL RDW Coeff of Mendez (11.5-14.5) % Plt Count (130-400) K/uL MPV (7.4-10.4) fL Immature Gran % (Auto) % Neut % (Auto) % Lymph % (Auto) % [place] % (Auto) % Eos % (Auto) % Baso % (Auto) % Immature Gran # (Auto) (0.00-0.02) K/uL Neut # (Auto) (1.4-6.5) K/uL Lymph # (Auto) (1.2-3.4) K/uL [place] # (Auto) (0.11-0.59) K/uL Eos # (Auto) (0-0.5) K/uL Baso # (Auto) (0-0.2) K/uL Platelet Estimate (Normal) Anisocytosis Tear Drop Cells Ovalocytes Peripher Smr Path Cons PT (9.0-12.0) Seconds INR (0.9-1.1) APTT (21.0-31.0) Seconds PTT Ratio Sodium 139 (136-145) mmol/L Potassium 4.2 (3.5-5.1) mmol/L Chloride 109 H (98-107) mmol/L Carbon Dioxide 25 (21-32) mmol/L Anion Gap 5.0 (3-11) BUN 11 (7-18) mg/dl Creatinine 0.72 (0.6-1.4) mg/dl Est Cr Clr Drug Dosing 175.7 ml/min Est GFR ( Amer) 149.2 Est GFR (Non-Af Amer) 128.7 BUN/Creatinine Ratio 15.3 (10-20) Glucose 88 (70-99) mg/dl Calcium 8.5 (8.5-10.1) mg/dl Total Bilirubin (0.2-1) mg/dl AST (15-37) U/L ALT (12-78) U/L Alkaline Phosphatase (45-117) U/L Troponin I (0-0.045) ng/ml Total Protein (6.4-8.2) gm/dl Albumin (3.4-5.0) gm/dl Globulin (2.5-4.0) gm/dl Albumin/Globulin Ratio (0.9-2) Lipase (73-393) U/L Urine Color Urine Appearance (Clear) Urine pH (4.5-7.5) Ur Specific [place] (1.000-1.030) Urine Protein (Negative) Urine Glucose (UA) (Negative) Urine Ketones (Negative) Urine Blood (Negative) Urine Nitrite (Negative) Urine Bilirubin (Negative) Urine Urobilinogen (Negative) Ur Leukocyte Esterase (Negative) Urine WBC (Auto) (0-5) /hpf Urine RBC (Auto) (0-4) /hpf U Hyaline Cast (Auto) (0-5) /lpf U Epithel Cells (Auto) (0-5) /lpf Urine Bacteria (Auto) (Negative) Nasal Screen MRSA (PCR) (Negative) HIV 1&2 Ab/P24 Ag 4thGn (Neg) Blood Type Blood Type Recheck Antibody Screen Crossmatch Imaging Data Radiologist's Impression: Radiology results as stated below per my review and the radiologist's interpretation: CT SCAN OF THE ABDOMEN AND PELVIS WITH IV CONTRAST CLINICAL HISTORY: Pancytopenia. Constipation. COMPARISON STUDY: No priors. TECHNIQUE: Following the IV administration of 93 cc of Optiray 320, CT scan of the abdomen and pelvis is performed from the lung bases to the proximal femora. Images are reviewed in the axial, sagittal, and coronal planes. IV contrast was administered without complication. A dose lowering technique was utilized adhering to the principles of ALARA. CT DOSE: 327.17 mGy.cm FINDINGS: Lung bases: The heart is normal in size and without pericardial effusion. The lung bases are clear. Liver: The contrast-enhanced liver is normal in size, contour, and attenuation. There is no intrahepatic biliary ductal dilatation. The hepatic veins and portal veins are patent. There are scattered calcified hepatic granulomas. Gallbladder: Unremarkable. Spleen: Normal in size and attenuation. There are calcified splenic granulomas. Pancreas: Unremarkable. Adrenal glands: Unremarkable. Kidneys: The contrast enhanced kidneys are normal in size and without hydronephrosis. The kidneys enhance symmetrically. Abdominal vasculature: The abdominal aorta is normal in course and caliber. Bowel: There is moderate to severe constipation. No bowel obstruction is identified. The appendix is not identified and reported surgically absent. Peritoneum: There is no intraperitoneal free air or abdominal ascites. There is a small fat-containing umbilical hernia. Lymphadenopathy: None. Pelvic viscera: The bladder, prostate, and seminal vesicles are normal as imaged. Skeletal structures: No lytic or blastic lesions are seen. There is a right- sided pars defect at L5. IMPRESSION: Constipation. Electronically signed by: Helder Rivera M.D. 06/29/2018 12:12 PM XR chest 1V portable CLINICAL HISTORY: 28 years-old Male presenting with chest pain. TECHNIQUE: Portable upright AP view of the chest was obtained. COMPARISON: 10/27/2014. FINDINGS: Cardiomediastinal silhouette normal. No focal opacity. No large effusion or pneumothorax. Osseous structures normal. Upper abdomen normal. IMPRESSION: 1. No acute cardiopulmonary disease. Electronically signed by: Donal Coyle M.D. 06/29/2018 12:03 PM Blood Pressure Blood Pressure Findings: Low blood pressure Blood Pressure Disposition: further management by hospitalist MDM Narrative Pt here well appearing but pale without specific complaints initially. On additional discussion, pt admitted to exertional symptoms of chest pain and sob as well as increased fatigue and weakness. Outpt labs showed pancytopenia which we confirmed on labs here. Type and cross for 2 units and consent for transfusion signed. Pt denies any signs or symptoms of ongoing bleeding. No rectal exam performed due to concern for risk given thrombocytopenia noted also. CT abd/pelvis reassuring. Blood transfusion started in ER. Peripheral smear pending at time of discussion with hospitalist. They will discuss with heme/onc. VS stable while in the ER and no evidence of active bleeding. No evidence of infection. Impression & Plan Pancytopenia, Constipation, Fatigue, KEY (dyspnea on exertion) Critical Care Time I have personally spent 35 minutes of critical care time in the direct management of this patient. This includes bedside care, interpretation of diagnostic studies, and testing, discussion with consultants, patient, and family members, and other required patient management activities. This 35 minutes is in excess of all separately billable procedures. Critical Care Time: Yes Total Critical Care Time: 35 Discharge Plan Visit Data *Final* Discharge Date/Time: 06/29/18 13:52 Chief Complaint: Constipation Stated Complaint: LOW BLOOD COUNT,NOT HAVING BOWEL MOVEMENT 1WEEK ED Provider: Tammy Duggan Discharge Problem: Pancytopenia, Constipation, Fatigue, KEY (dyspnea on exertion) Patient Disposition: Admitted As Inpatient Discharge Instructions Interventions: ED Discharge Assessment Last Done: 06/29/18 13:52 The scribe's documentation has been prepared under my direction and personally reviewed by me in its entirety. I confirm that the note above accurately reflects all work, treatment, procedures, and medical decision making performed by me.
--- NOTE | 2018-07-01 08:46 | Oncology Consultation ---
Date of Consultation June 30, 2018 Assessment & Plan (1) Pancytopenia: His pancytopenia appears to be related to some sort of primary bone marrow disorder. He has no evidence of schistocytes by smear. 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 He does have some URI symptoms but no cervical lymphadenopathy or pharyngeal exudates to suggest mononucleosis. As a prisoner, tick-borne illness is very unlikely and he has no fevers or other associated symptoms. He is not taking any new medications that would lead to pancytopenia. Overall, my suspicion is that this represents either a malignancy, like a hypoplastic AML, or aplastic anemia. Another consideration would be PNH, though that is rare. My nurse practitioner, Linh Mora, performed a bone marrow aspirate and biopsy at the bedside today. She was assisted by me and I was present throughout the entire procedure. Nursing time out procedure was performed per protocol and written informed consent was obtained. 1% lidocaine without epinephrine was used for local anesthesia without complications. The patient was prepped and draped in usual sterile fashion and placed in the right lateral decubitus position. The left posterior superior iliac crest was located without difficulty. Using a standard 11-gauge bone marrow biopsy needle , the left posterior-superior iliac crest was entered without difficulty. Adequate spicules were seen. A sample of liquid marrow was aspirated and sent for cytogenetics, flow cytometry, and FISH. The left posterior-superior iliac spine was re-entered with a standard Jamshidi core biopsy needle. An adequate core biopsy was obtained. The patient had minimal bleeding post-procedure and adequate hemostasis was achieved. Present on Admission?: Yes History of Present Illness Reason for Consultation: Pancytopenia Attending Physician: Nnamdi Carrera DO History of Present Illness Mr. Calloway is a 28 year old prisoner. He has a history of asthma and depression. He came to the attention of the medical staff at the long term with profound fatigue that started about a week or so ago. He had lab work at that time that revealed profound pancytopenia, for which he was brought to [facility]. He denies any fevers, chills, night sweats, lymphadenopathy, bleeding, or bruising. He does report some URI-like symptoms, including congestion and sore throat. He does not have a job in the long term and denies any chemical exposures. He denies any use of illicit drugs. He has not started any new medications recently. He is not aware of any family history of blood disorders. Allergies Allergy/AdvReac Type Severity Reaction Status Date / Time tomato Allergy Unknown Unverified 06/29/18 12:31 Home Medications Home Medications Medication Instructions Recorded Confirmed Type ciclesonide [Alvesco] 1 puff INHALATION BID 06/29/18 06/29/18 History diphenhydramine HCl 50 mg PO HS 06/29/18 06/29/18 History duloxetine 30 mg PO HS 06/29/18 06/29/18 History levalbuterol tartrate [Xopenex HFA] 1 puff INHALATION Q6H 06/29/18 06/29/18 History montelukast 10 mg PO DAILY 06/29/18 06/29/18 History prazosin 2 mg PO HS 06/29/18 06/29/18 History salmeterol [Serevent Diskus] 1 inh INHALATION Q12H 06/29/18 06/29/18 History Patient History Medical History Asthma Depression No significant past surgical history Family History Other Bone cancer Cancer Diabetes Social History Current Living Situation: Other Current Living Situation Comment: inmate Feels Safe at Home: Yes Smoking Status: Current every day smoker Preferred Language: Wolof Review of Systems Constitutional: + fatigue and + weakness; no fever and no chills Eyes: no discharge and no worsening vision Ear, Nose, Mouth, Throat: + nasal congestion, + bleeding gums and + sore throat Respiratory: no cough, no dyspnea and no hemoptysis Cardiovascular: no chest pain, no palpitations and no edema Gastrointestinal: no abdominal pain, no nausea, no vomiting and no diarrhea/ loose stools Genitourinary (Male): no dysuria and no hematuria Musculoskeletal: no back pain, no myalgia and no body aches Integumentary: no rash and no bleeding lesions Neurologic: no dizziness and no headache(s) Hematologic / Lymphatic: no lymphadenopathy and no night sweats Physical Exam 2 Vital Signs (Past 24 Hours): Last Vital Signs Temp 36.5 C 06/30/18 19:51 Pulse 68 06/30/18 19:51 Resp 18 06/30/18 19:51 BP 113/57 L 06/30/18 19:51 Pulse Ox 100 06/30/18 19:51 Constitutional: well developed and well nourished; no acute distress Eyes: + anicteric sclerae and EOM intact bilaterally ENMT: external ear and nose normal, oropharynx normal Respiratory: normal respiratory effort, lungs clear to auscultation Cardiovascular: RRR, no murmur, no edema Gastrointestinal (Abdomen): normal bowel sounds, soft, nontender, no hepatosplenomegaly Musculoskeletal: no cyanosis or clubbing, extremities motor strength 5/5 Skin: no rashes, warm and dry Lymphatic: no cervical or axillary lymphadenopathy Results & Data Laboratory Results Abnormal Labs 06/29/18 06/29/18 06/29/18 11:00 11:00 11:05 WBC 1.79 L RBC 1.60 L Hgb 5.5 L* Hct 16.5 L* MCV 103.1 H MCH 34.4 H RDW Std Deviation 62.5 H RDW Coeff of Mendez 16.9 H Plt Count 20 L* Neut # (Auto) 0.43 L* [place] # (Auto) 0.05 L Chloride 110 H AST 6 L ALT 10 L Urine Appearance Cloudy H U Epithel Cells (Auto) 10-20 H Crossmatch 06/29/18 06/30/18 06/30/18 11:57 05:37 05:37 WBC 2.18 L RBC 2.11 L Hgb 6.9 L* Hct 20.3 L* MCV MCH RDW Std Deviation 69.3 H RDW Coeff of Mendez 20.0 H Plt Count 20 L* Neut # (Auto) 0.34 L* [place] # (Auto) 0.05 L Chloride 109 H AST ALT Urine Appearance U Epithel Cells (Auto) Crossmatch See Detail Diagnostic Findings CT A/P from 06/29/18 revealed no organomegaly, infections, or other gross abnormalities aside from retained stool.
[2018-07-01 17:17] LABS: CMV IgM Antibody <30.00 Au/mL
== END 2018-06-30 20:45 | disposition short-term general hospital (02) | DRG 810 ==
LOC: ED 10:25 → 4W 12:26 → SUATTDRO 12:26 → 4W 13:52